=== PATIENT | female | born 1960 | race Caucasian/White ===

== ENCOUNTER → 2020-12-08 | Outpatient (CLI) | payer BC, OTHER | LOC: RAD 11:58 | DX: R07.81 Pleurodynia (principal) | CPT/HCPCS: 71101 ==

== ENCOUNTER → 2021-04-05 | Outpatient (CLI) | payer BC, OTHER | LOC: EXRD 09:43 | DX: Z78.0 Asymptomatic menopausal state (principal) | CPT/HCPCS: 77080 ==

== ENCOUNTER → 2021-10-03 | Outpatient (CLI) | payer BC | LOC: RAD 11:52 | DX: M25.551 Pain in right hip (principal); M25.552 Pain in left hip; M62.81 Muscle weakness (generalized); R29.898 Other symptoms and signs involving the musculoskeletal system; M16.0 Bilateral primary osteoarthritis of hip; M47.816 Spondylosis without myelopathy or radiculopathy, lumbar region | CPT/HCPCS: 72100; 73522 ==

== ENCOUNTER → 2022-03-20 | Outpatient (CLI) | payer BC | LOC: LAB 10:10 | DX: T14.8XXA Other injury of unspecified body region, initial encounter (principal); W57.XXXA Bitten or stung by nonvenomous insect and other nonvenomous arthropods, initial encounter | CPT/HCPCS: 36415; 86356; 86357 ==